=== PATIENT | female | born 1950 ===

== ENCOUNTER 2025-02-18 23:02 | Emergency (ER) | payer MEDICARE, OTHER ==
[~2025-02-18] VITALS: Ht 157.5 cm; Wt 90.9 kg
[2025-02-18 23:09] VITALS: BP 146/88; PULSE 82; RESP 14; TEMP 98.1; O2SAT 96
[2025-02-19 02:09] LABS: APPEARANCE,URINE CLEAR (CLEAR); GLUCOSE, URINE (UA) NEGATIVE (NEGATIVE); LEUKOCYTE ESTERASE ,URINE NEGATIVE (NEGATIVE); NITRATE,URINE NEGATIVE (NEGATIVE); OCCULT BLOOD,URINE NEGATIVE (NEGATIVE); SPECIFIC GRAVITIY, URINE 1.014 (1.003-1.030)
[2025-02-19] MEDS: IBUPROFEN 600 MG TABLET PO ONE (03:43)
== END 2025-02-19 04:54 | disposition home or self-care (01) ==
LOC: EMS 02-19 04:51
DX: G89.29 Other chronic pain (principal); M25.562 Pain in left knee; M25.561 Pain in right knee; E11.9 Type 2 diabetes mellitus without complications; I10 Essential (primary) hypertension; Z91.011 Allergy to milk products
CPT/HCPCS: 81003; 99284